=== PATIENT | female | born 1940 | race Asian ===

== ENCOUNTER 2016-09-26 16:04 | Emergency (ER) | payer OTHER ==
[2016-09-26 19:07] VITALS: BP 150/72
== END 2016-09-26 19:08 | disposition home or self-care (01) ==
LOC: ED 16:04
DX: S42.251A Displaced fracture of greater tuberosity of right humerus, initial encounter for closed fracture (principal); S60.221A Contusion of right hand, initial encounter; E11.9 Type 2 diabetes mellitus without complications; I10 Essential (primary) hypertension; E78.00 Pure hypercholesterolemia, unspecified; E03.9 Hypothyroidism, unspecified; W18.30XA Fall on same level, unspecified, initial encounter; Z88.0 Allergy status to penicillin; Z88.2 Allergy status to sulfonamides; Z79.4 Long term (current) use of insulin; Y93.89 Activity, other specified; Y99.8 Other external cause status; Y92.89 Other specified places as the place of occurrence of the external cause